=== PATIENT | male | born 1930 | race Caucasian/White ===

== ENCOUNTER → 2017-06-26 | Outpatient (CLI) | payer MEDICARE, BC ==
[2017-06-26 10:28] LABS: ALT 27 U/L (21-72); AST 20 U/L (17-59); Anion Gap 11 mmol/L; Blood Urea Nitrogen 18 mg/dL (9-20); Carbon Dioxide 28 mmol/L (22-30); Chloride 105 mmol/L (98-107); Potassium 5.1 mmol/L (3.5-5.1); Sodium 144 mmol/L (137-145)
[2017-06-26 11:36] LABS: Vitamin B12 837 pg/mL
[2017-06-26 16:28] LABS: Non-African American GFR(MDRD) >60 (>60 ml/min/1.73 sqM)
[2017-06-27 10:18] LABS: Lyme IgG/IgM Interp NEGATIVE (NEGATIVE)
== END | disposition home or self-care (01) ==
LOC: LABWHC1 09:50
PROVIDERS: ATTEND Psychiatry & Neurology Neurology
DX: R41.3 Other amnesia (principal)
CPT/HCPCS: 36415; 80051; 82565; 82607; 82746; 84439; 84443; 84450; 84460; 84481; 84520; 86618

== ENCOUNTER → 2017-06-28 | Outpatient (CLI) | payer MEDICARE, BC ==
--- NOTE | 2017-06-28 22:17 | MR ---
EXAMINATION TYPE: MR brain wo/w con DATE OF EXAM: 06/28/2017 COMPARISON: CT brain January 08, 2013. 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 TECHNIQUE: Multiplanar, multisequence images of the brain and brainstem is performed without and with IV contras t, utilizing 20 mL intravenous MultiHance . FINDINGS: Diffusion weighted images demonstrate no evidence of a recent infarct or other diffusion ab normality. There is no worrisome extra-axial fluid collection. There is ventricular and sulcal promi nence consistent with diffuse cerebral atrophy redemonstrated. There is focal and confluent areas of T2 hyperintensity seen throughout the white matter bilaterally redemonstrated. Midline structures demonstrate normal morphology. The craniocervical junction appears within normal limits. Post contrast images demonstrate no abnormal enhancement. The dural venous sinuses appear pa tent. There is mild mucosal thickening involving ethmoid sinuses bilaterally redemonstrated otherwise paranasal sinuses are clear. The globes are intact bilaterally.. IMPRESSION: There is mild to moderate diffuse cerebral atrophy redemonstrated with progression from [address] felt present as there is new sulcal prominence noted. There is severe chronic small vessel isc hemic change noted.
== END | disposition home or self-care (01) ==
LOC: RADMRIMAIN 16:51
PROVIDERS: ATTEND Psychiatry & Neurology Neurology
DX: G31.9 Degenerative disease of nervous system, unspecified (principal); I67.82 Cerebral ischemia; R41.3 Other amnesia
CPT/HCPCS: 70553; A9577